=== PATIENT | female | born 1950 | race Caucasian/White ===

== ENCOUNTER 2017-03-12 13:50 | Emergency (ER) | payer OTHER ==
[2017-03-12 14:07] VITALS: BP 165/93; PULSE 64; RESP 16; TEMP 98.6; O2SAT 96
--- NOTE | 2017-03-12 16:02 | EDPHY ---
H & P Stated Complaint: INJURY TO L RING FINGER HPI/ROS: CHIEF COMPLAINT: Left ring finger injury, left little finger injury HISTORY OF PRESENT ILLNESS: Patient was walking 2 dogs on 2 lesion is this afternoon around 115. She has had 1 dog took off quickly when she was not ready. She noticed a sudden onset of pain in the left ring finger and left little finger. This is over the PIP joint. There is deformity and difficulty moving the fingers. Severe pain with palpation or movement. No numbness or tingling. No pain in the ipsilateral hand or wrist. No injury elsewhere. No other associated complaints or modifying factors. REVIEW OF SYSTEMS: Ten systems reviewed and are negative unless otherwise noted in the HPI EXAMINATION General Appearance: Alert, no distress Cardiovascular: Pulses normal throughout. Symmetric radial pulses 2+. Brisk cap refill Neurological: A&O, sensory symmetric, strength symmetric. Normal 2 point sensation Skin: Warm and dry, no rash. Ecchymosis over the areas of injury in the fingers only Extremities: Significant tenderness over the left ring finger and left little finger. There is no tenderness of the thumb, index or metacarpal bones. There is obvious deformity of the left ring finger suggest the need dislocation. Neurovascular intact distally. Psychiatric: Mood and affect normal DIFFERENTIAL DIAGNOSES: Including but not limited to dislocation, fracture, subluxation, ecchymosis, hematoma, chin laceration, abrasions MDM: 3:40 p.m. Dislocation of the left ring finger PIP joint and subluxation of the left 5th finger PIP joint. She is neuro intact without obvious deformity. X-ray confirms this. I have administered a digital block to both of the affected fingers. I will reduce and splint. She is in no acute distress with no injury elsewhere. 4:00 p.m. Successful reduction of both the left ring finger PIP of the left little finger PIP joints. I will obtain a post reduction film and place splints. 4:20 p.m. Successful reduction with confirmation by plain film. I will place the patient in [place] splints. She will be discharged home with light activity recommended for the fingers until she can be seen by hand surgeon Dr. Scott. She is to return here for any numbness, tingling, weakness or difficulty moving the affected hand or fingers. She is comfortable this plan. Proceed with splint placement and discharged home. PROCEDURE: Digital Block Indication: PIP dislocation Consent: Verbal Location: Left ring finger and left small finger, total of 2 digital blocks Anesthesia: Lidocaine 1% plain, 0.25% Marcaine plain, 5mL Description: The base of each finger was prepped with chlorhexidine. The above infusion was administered into each finger, a total of 10 mL as. Good anesthesia. Tolerated well. No complication. Complications: None PROCEDURE: Closed reduction of PIP joint, 1. Consent: Verbal Location: Left ring finger, PIP Anesthesia: Digital block Procedure: After digital block there was good anesthesia. The left PIP joint was reduced with traction and manipulation posteriorly of the distal segment. There was good anatomic alignment by feeling visualization. Complications: None. Tolerated well Post-reduction film: Plain film shows excellent anatomic alignment. PROCEDURE: Closed reduction of PIP joint, 2. Consent: Verbal Location: Left little finger, PIP Anesthesia: Digital block Procedure:fter digital block there was good anesthesia. The left PIP joint was reduced with traction and manipulation posteriorly of the distal segment. There was good anatomic alignment by feeling visualization. Complications: None. Tolerated well Post-reduction film: Shows excellent anatomic alignment ED Precautions: Worsening pain. Erythema, edema, cyanosis, pallor, paresthesia or anesthesia. SUPERVISION: This patient was independently evaluated without direct examination by the attending physician. Case was discussed with attending physician. Source: Patient Exam Limitations: No limitations - Personal History Current Tetanus Diphtheria and Acellular Pertussis (TDAP): Yes Tetanus Vaccine Date: < 10 YEARS - Medical/Surgical History Hx Asthma: No Hx Chronic Respiratory Disease: No Hx Diabetes: No Hx Cardiac Disease: No Hx Renal Disease: No Hx Cirrhosis: No Hx Alcoholism: No Hx HIV/AIDS: No Hx Splenectomy or Spleen Trauma: No Other PMH: PAC'S, THYROIDECTOMY, - Social History Smoking Status: Never smoked Constitutional: Initial Vital Signs Temperature (C) 98.6 F 03/12/17 14:04 Heart Rate 64 03/12/17 14:04 Respiratory Rate 16 03/12/17 14:04 Blood Pressure 165/93 H 03/12/17 14:04 O2 Sat (%) 96 03/12/17 14:04 O2 Delivery Mode Room Air Allergies/Adverse Reactions: No Known Allergies Allergy (Unverified 03/12/17 14:09) Home Medications: Medication Instructions Recorded Acetaminophen/Codeine 300/30Mg 1 each PO Q6 PRN #15 tab 03/12/17 [Tylenol #3 (*)] Aspirin 81mg (*) 03/12/17 Levothyroxine 03/12/17 Medical Decision Making - Diagnostics Imaging Results: Imaging Impressions Hand X-Ray 03/12/17 14:10 Impression: Subluxation of the fourth proximal interphalangeal joint. Departure - Departure Disposition: Home, Routine, Self-Care Clinical Impression: Dislocation of proximal interphalangeal joint of left little finger Qualifiers: Encounter type: initial encounter Qualified Code(s): S63.287A - Dislocation of proximal interphalangeal joint of left little finger, initial encounter Dislocation of proximal interphalangeal joint of left ring finger Qualifiers: Encounter type: initial encounter Qualified Code(s): S63.285A - Dislocation of proximal interphalangeal joint of left ring finger, initial encounter Condition: Good Instructions: Finger Dislocation (ED) Additional Instructions: 1. Nonweightbearing on the left ring and little fingers until seen by hand surgeon 2. Contact hand surgeon tomorrow for definitive care 3. Return here for numbness, tingling, weakness Referrals: Ria Beckwith MD [Primary Care Provider] - As per Instructions Juan Scott MD [Medical Doctor] - As per Instructions Prescriptions: Acetaminophen/Codeine 300/30Mg [Tylenol #3 (*)] 1 each PO Q6 PRN #15 tab PRN Reason: Pain, Mild
== END 2017-03-12 16:41 | disposition home or self-care (01) ==
PROC: 0RSXXZZ Reposition Left Finger Phalangeal Joint, External Approach (ICD-10-PCS; principal; 2017-03-12)
DX: S63.287A Dislocation of proximal interphalangeal joint of left little finger, initial encounter (principal); S63.285A Dislocation of proximal interphalangeal joint of left ring finger, initial encounter; Z79.82 Long term (current) use of aspirin; X58.XXXA Exposure to other specified factors, initial encounter
CPT/HCPCS: 26770; 73120; 73130; 99283; L3925